=== PATIENT | male | born 2000 | race Caucasian/White ===

== ENCOUNTER 2018-01-28 23:08 | Observation (INO) | payer OTHER ==
[2018-01-28 23:55] LABS: AMORPHOUS SEDIMENT,URINE TRACE /HPF; APPEARANCE,URINE CLOUDY; BILIRUBIN,URINE NEGATIVE (NEGATIVE); COLOR,URINE YELLOW; GLUCOSE, URINE NEGATIVE (NEGATIVE); KETONES,URINE NEGATIVE (NEGATIVE); LEUKOCYTE ESTERASE,URINE NEGATIVE (NEGATIVE); NITRITE,URINE NEGATIVE (NEGATIVE); PROTEIN,URINE 30 mg/dL (NEGATIVE); URINE SPECIFIC GRAVITY 1.024
--- NOTE | 2018-01-29 00:38 | ER Document Report ---
ED General - General Chief Complaint: Abdominal Pain Stated Complaint: ABDOMINAL PAIN Time Seen by Provider: 01/29/18 00:37 Notes: Patient is a 17-year-old male who presents emergency department complaining of diffuse abdominal pain. Patient states that the symptoms started today while he was at work. States that it is originally left lower quadrant and all over his stomach and then moved into his right lower quadrant. He admits to mild nausea when the pain is at its worst and as a sharp stabbing. Otherwise describes it as a constant cramp. Patient states that he has been constipated over the past 2 days. He denies any fevers or chills. Female - Related Data Allergies/Adverse Reactions: No Known Allergies Allergy (Verified 01/29/18 01:42) Past Medical History - Social History Smoking Status: Never Smoker Chew tobacco use (# tins/day): No Frequency of alcohol use: Rare Drug Abuse: None Family History: None Patient has suicidal ideation: No Patient has homicidal ideation: No Pulmonary Medical History: Reports: Hx Asthma - childhood Renal/ Medical History: Denies: Hx Peritoneal Dialysis Past Surgical History: Reports: Hx Tonsillectomy - with adnoidectomy - Immunizations Immunizations up to date: Yes Hx Diphtheria, Pertussis, Tetanus Vaccination: Yes Review of Systems - Review of Systems Constitutional: No symptoms reported. denies: Chills, Fever Cardiovascular: No symptoms reported Respiratory: No symptoms reported Gastrointestinal: See HPI Male Genitourinary: No symptoms reported Musculoskeletal: No symptoms reported Neurological/Psychological: No symptoms reported -: Yes All other systems reviewed and negative Physical Exam - Vital signs Vitals: Temp Pulse Resp BP Pulse Ox 97.9 F 81 16 141/83 H 99 01/28/18 23:13 01/28/18 23:13 01/28/18 23:13 01/28/18 23:13 01/28/18 23:13 - Notes Notes: PHYSICAL EXAM GENERAL: Alert, interacts well. HEAD: Normocephalic, atraumatic. EYES: Pupils equal, round, and reactive to light. Extraocular movements intact. ENT: Oral mucosa moist, tongue midline. NECK: Full range of motion. Supple. Trachea midline. LUNGS: Clear to auscultation bilaterally, no wheezes, rales, or rhonchi. No respiratory distress. HEART: Regular rate and rhythm. No murmurs, gallops, or rubs. ABDOMEN: Soft, moderate right lower quadrant tenderness with palpation. Positive psoas sign. No guarding, rebound, or rigidity.. Bowel sounds present in all 4 quadrants. EXTREMITIES: Moves all 4 extremities spontaneously. No edema, radial and dorsalis pedis pulses 2/4 bilaterally. No cyanosis. NEUROLOGICAL: Alert and oriented x4. Normal speech. PSYCH: Normal affect, normal mood. SKIN: Warm, dry, normal turgor. No rashes or lesions noted. Course - Re-evaluation Re-evalutation: 01/29/18 02:31 Patient is a 17-year-old male who is hemodynamically stable no acute distress and afebrile. Initial exam shows significant right lower quadrant tenderness but patient states that he has been constipated over the past couple of days. Acute abdomen series shows evidence of cysts but repeat abdominal exams concerning for focal right lower quadrant tenderness therefore CT abdomen and pelvis with p.o. and IV contrast has been ordered to rule out acute appendicitis. Patient to be kept n.p.o. until results are reviewed. 01/29/18 05:00 Discussion with night urologist to see is early acute appendicitis without evidence of free air, abscess or perforation. Patient's been n.p.o. since midnight. Will initiate on Zosyn and IV fluids. Discussed with Dr. Healy to evaluate the patient in the ER. Limited - Vital Signs Vital signs: Temp Pulse Resp BP Pulse Ox 98.3 F 83 22 120/91 H 97 01/29/18 06:57 01/29/18 04:25 01/29/18 06:01 01/29/18 06:01 01/29/18 06:01 - Laboratory Result Diagrams: 01/29/18 00:15 01/29/18 00:15 Laboratory results interpreted by me: 01/28/18 01/29/18 01/29/18 23:36 00:15 00:15 WBC 15.0 H Absolute Neutrophils 10.9 H Absolute Monocytes 1.5 H ALT 47 H Urine Protein 30 H Urine Urobilinogen 2.0 H - Diagnostic Test Radiology reviewed: Image reviewed, Reports reviewed Discharge - Discharge Clinical Impression: Appendicitis Qualifiers: Appendicitis type: acute appendicitis Acute appendicitis type: unspecified acute appendicitis type Qualified Code(s): K35.80 - Unspecified acute appendicitis Condition: Good Disposition: ADMITTED INPATIENT Admitting Provider: Surgicalist Unit Admitted: Surgical Floor
[2018-01-29] MEDS ORDERED: KETOROLAC TROMETHAMINE INJ/PF 30 MG/1 ML SDV IV ONE (00:45)
[2018-01-29 01:00] LABS: ABSOLUTE BASOPHILS # (AUTO) 0.1 10^3/uL (0.0-0.2); ABSOLUTE EOSINOPHILS # (AUTO) 0.2 10^3/uL (0.0-0.6); ABSOLUTE LYMPHOCYTES (AUTO) 2.3 10^3/uL (0.5-4.7); ABSOLUTE MONOCYTES (AUTO) 1.5 10^3/uL (0.1-1.4); ABSOLUTE NEUT (AUTO) 10.9 10^3/uL (1.7-8.2); BASOPHILS % (AUTO) 0.5 % (0-2); EOSINOPHILS % (AUTO) 1.4 % (0-6); HEMOGLOBIN 16.3 g/dL (13.5-17.0); LYMPHOCYTES % (AUTO) 15.4 % (13-45); MEAN CORPUSCULAR HEMOGLOBIN 30.4 pg (27.0-33.4); MEAN CORPUSCULAR HGB CONC 34.6 g/dL (32.0-36.0); MEAN CORPUSCULAR VOLUME 88 fl (80-97); PLATELET COUNT 278 10^3/uL (150-450); RED BLOOD COUNT 5.35 10^6/uL (4.35-5.55); RED CELL DISTRIBUTION WIDTH 12.4 % (11.5-14.0); SEGMENTED NEUTROPHILS % (AUTO) 72.7 % (42-78); TOTAL CELLS COUNTED % (AUTO) 100 %
[2018-01-29 01:08] LABS: ALANINE AMINOTRANSFERASE 47 U/L (10-40); ALBUMIN 4.7 g/dL (3.7-5.6); ALKALINE PHOSPHATASE 75 U/L (65-260); ANION GAP 13 (5-19); ASPARTATE AMINO TRANSFERASE 24 U/L (10-45); BILIRUBIN,DIRECT 0.2 mg/dL (0.0-0.4); BILIRUBIN,TOTAL 0.6 mg/dL (0.2-1.3); BLOOD UREA NITROGEN 13 mg/dL (7-20); CALCIUM 10.2 mg/dL (8.4-10.2); CARBON DIOXIDE 27 mmol/L (22-30); CHLORIDE 100 mmol/L (98-107); GLUCOSE 104 mg/dL (75-110); LIPASE 37.3 U/L (23-300); POTASSIUM 4.1 mmol/L (3.6-5.0); SODIUM 140.3 mmol/L (137-145); TOTAL PROTEIN 7.2 g/dL (6.3-8.2)
--- NOTE | 2018-01-29 02:04 | RADIOLOGY REPORT (SQ) ---
EXAM DESCRIPTION: ACUTE ABDOMEN SERIES CLINICAL HISTORY: diffuse abdominal pain COMPARISON: None. FINDINGS: Single view of the chest with upright and spine views of the abdomen. Cardiomediastinal silhouette has normal size and contour. No consolidation, pneumothorax, or pleural effusion. No acute osseous abnormalities. No free intraperitoneal air. No dilated loops of large or small bowel identified. Moderate amount of stool. Likely fecalith in the right abdomen. No acute osseous abnormalities. No definite organomegaly. IMPRESSION: 1. No acute pulmonary process. 2. Nonobstructive bowel gas pattern.
[2018-01-29] MEDS ORDERED: PIPERACILLIN/TAZOBACTAM 3.375 GM VIAL IV ONE (04:59)
--- NOTE | 2018-01-29 04:59 | RADIOLOGY REPORT (SQ) ---
EXAM DESCRIPTION: CT ABDOMEN AND PELVIS WITH CONTRAST CLINICAL HISTORY: right lower quadrant pain COMPARISON: None Available. TECHNIQUE: CT of the abdomen and pelvis performed following IV administration of 96 mL of Isovue-370. DLP: 2238.24 mGycm FINDINGS: FINDINGS: Lung Bases: The visualized lung bases are clear. Bones: No destructive bone lesions identified. Abdomen: Liver: The liver has normal size and density. No intrahepatic mass or biliary dilatation. Gallbladder: No calcified gallstones. Spleen, Pancreas, and Adrenal Glands: The spleen, pancreas, and adrenal glands are unremarkable. Kidneys: The kidneys have normal size and contour without evidence of solid mass or hydronephrosis. Vasculature: The aorta and IVC have normal caliber and position. The portal vein is patent. The proximal visceral and renal arteries are patent. Stomach: The stomach and duodenum have normal course. Other: No free intraperitoneal air. No free fluid. Pelvis: Bladder: Urinary bladder is unremarkable. Bowel: No dilated loops of large or small bowel. Appendix: There is an appendicolith with mild dilatation of the appendix and periappendiceal fat stranding as well as lymphadenopathy. No periappendiceal abscess formation Pelvis: The prostate is not enlarged. IMPRESSION: 1. Findings compatible with early acute appendicitis. Urgent finding reported to KSENIA Reardon at 01/29/2018 3:57 AM CDT This exam was performed according to our departmental dose-optimization program, which includes automated exposure control, adjustment of the mA and/or kV according to patient size and/or use of iterative reconstruction technique.
[2018-01-29] MEDS ORDERED: RINGERS SOLUTION,LACTATED 1,000 ML IV PRN ×2 (05:02→09:20)
[2018-01-29] MEDS ORDERED: MORPHINE SULFATE 10 MG/ML INJ IV ONE (05:02)
[2018-01-29] MEDS ORDERED: PIPERACILLIN/TAZOBACTAM 4.5 GM VIAL IV ONE (06:38)
--- NOTE | 2018-01-29 06:46 | PDOC H&P ---
History of Present Illness Admission Date/PCP: 01/29/18 05:54 ALIRIO MCKEON History of Present Illness: DARBY YO is a 17 year old male Presents to the emergency department complaining of a 12 hour history of abdominal pain, right-sided, with anorexia, no nausea or vomiting. Patient denies history of trauma, previous episodes of abdominal pain, or association with family members with similar symptoms. Patient was evaluated in the emergency department where he was found to have right-sided abdominal pain. Acute abdominal series was unremarkable. CT scan of the abdomen and pelvis performed showed findings consistent with early acute appendicitis. Surgery was consulted, patient was advised admission and definitive management. Past Medical History Pulmonary Medical History: Reports: Asthma - childhood Past Surgical History Past Surgical History: Reports: Tonsillectomy - with adnoidectomy Social History Smoking Status: Never Smoker Hx Recreational Drug Use: No Hx Prescription Drug Abuse: No Family History Family History: None Parental Family History Reviewed: Yes Children Family History Reviewed: Yes Sibling(s) Family History Reviewed.: Yes Medication/Allergy Home Medications: Cyclobenzaprine HCl [Flexeril 5 mg Tablet] 5 mg PO TID #15 tablet 07/22/14 Hydrocodone/Acetaminophen [[place] 5-325 mg Tablet] 1 tab PO QID #15 tablet Naproxen 500 mg PO BID #20 tablet 07/22/14 Allergies/Adverse Reactions: No Known Allergies Allergy (Verified 01/29/18 01:42) Review of Systems Constitutional: ABSENT: chills, fever(s), headache(s), weight gain, weight loss Eyes: ABSENT: visual disturbances Ears: ABSENT: hearing changes Cardiovascular: ABSENT: chest pain, dyspnea on exertion, edema, orthropnea, palpitations Genitourinary: ABSENT: dysuria, hematuria Musculoskeletal: ABSENT: joint swelling Integumentary: PRESENT: other - Patient does have some scratches on his hands related to minor trauma. ABSENT: rash, wounds Psychiatric: ABSENT: anxiety, depression, homidical ideation, suicidal ideation Endocrine: ABSENT: cold intolerance, heat intolerance, polydipsia, polyuria Physical Exam Vital Signs: Temp Pulse Resp BP Pulse Ox 98.3 F 83 22 120/91 H 97 01/29/18 04:25 01/29/18 04:25 01/29/18 06:01 01/29/18 06:01 01/29/18 06:01 General appearance: PRESENT: no acute distress Head exam: PRESENT: normocephalic Eye exam: PRESENT: EOMI Ear exam: PRESENT: normal external ear exam Neck exam: PRESENT: full ROM Respiratory exam: PRESENT: clear to auscultation saida Cardiovascular exam: PRESENT: RRR Pulses: PRESENT: normal carotid pulses, normal radial pulses, normal femoral pulses GI/Abdominal exam: PRESENT: other - Diffuse abdominal tenderness but more localized to the right lower quadrant with mild guarding. No rigidity. Extremities exam: PRESENT: full ROM Musculoskeletal exam: PRESENT: ambulatory Psychiatric exam: PRESENT: anxious Results Impressions: Acute Abdomen Series 01/29/18 00:44 IMPRESSION: 1. No acute pulmonary process. 2. Nonobstructive bowel gas pattern. Abdomen CT 01/29/18 02:30 IMPRESSION: 1. Findings compatible with early acute appendicitis. Urgent finding reported to KSENIA Reardon at 01/29/2018 3:57 AM CDT This exam was performed according to our departmental dose-optimization program, which includes automated exposure control, adjustment of the mA and/or kV according to patient size and/or use of iterative reconstruction technique. Assessment & Plan - Diagnosis (1) Appendicitis Qualifiers: Appendicitis type: acute appendicitis Acute appendicitis type: unspecified acute appendicitis type Qualified Code(s): K35.80 - Unspecified acute appendicitis Is this a current diagnosis for this admission?: Yes Plan: Patient's clinical, and radiographic history consistent with acute appendicitis ; no evidence of rupture or phlegmon. Recommendations: 1. Admission to surgical service, keep n.p.o., on IV fluids, intravenous antibiotics. Plan for interval laparoscopic, possible open appendectomy, later today, [facility], main operating room, general anesthesia. I explained the risks benefits and alternatives of planned procedure including bleeding, infection, wound healing issues, need for additional surgery drain placement and complications related to anesthesia. 2. I explained to the patient, patient's girlfriend and patient's mother that Dr. House, surgicalist of the day, performing the procedure. - Time Time Spent: 30 to 50 Minutes Critical Time spent with patient: 15-24 minutes Medications reviewed and adjusted accordingly: Yes Anticipated discharge: Home - Inpatient Certification Based on my medical assessment, after consideration of the patient's comorbidities, presenting symptoms, or acuity I expect that the services needed warrant INPATIENT care.: Yes I certify that my determination is in accordance with my understanding of Medicare's requirements for reasonable and necessary INPATIENT services [42 CFR 412.3e].: Yes Medical Necessity: Need For IV Fluids, Need for IV Antibiotics, Need for Surgery
[2018-01-29] MEDS ORDERED: PROPOFOL INJ 200 MG/20 ML VIAL IV ONE (07:25)
[2018-01-29] MEDS ORDERED: MIDAZOLAM 2 MG/2 ML INJ ONE (07:25)
[2018-01-29] MEDS ORDERED: ACETAMINOPHEN 100 ML IV ONE (07:25)
[2018-01-29] MEDS ORDERED: FENTANYL CITRATE INJ/PF 250 MCG/5 ML AMPULE ONE (07:25)
[2018-01-29] MEDS ORDERED: BUPIVACAINE HCL 0.5%-EPI 1:200000 INJ/PF 30 ML VIAL ONE (07:38)
[2018-01-29] MEDS ORDERED: PROMETHAZINE HCL INJ 25 MG/1 ML VIAL ONE (07:43)
[2018-01-29] MEDS ORDERED: MEPERIDINE HCL/PF INJ 25 MG/1 ML DISP.SYRIN IV PRN (08:31)
[2018-01-29] MEDS ORDERED: ONDANSETRON HCL INJ/PF 4 MG/2 ML SDV IV PRN (08:31)
[2018-01-29] MEDS ORDERED: FENTANYL CITRATE INJ/PF 100 MCG/2 ML AMPUL IV PRN ×3 (08:31)
[2018-01-29] MEDS ORDERED: DIPHENHYDRAMINE HCL 50 MG/ML VIAL IV PRN (08:31)
--- NOTE | 2018-01-29 09:18 | Operative Report ---
Nonrecallable Operative Report DATE OF SURGERY: 01/29/18 PREOPERATIVE DIAGNOSIS: acute appendicitis POSTOPERATIVE DIAGNOSIS: same OPERATION: laparoscoic appendectomy SURGEON: DORINDA CEE 1ST RN CARDIOLOGY: none TISSUE REMOVED OR ALTERED: appendix COMPLICATIONS: none INTRAOPERATIVE FINDINGS: acute, nonperforated appendicitis PROCEDURE: laparoscopic appendectomy
[2018-01-29] MEDS ORDERED: KETOROLAC TROMETHAMINE INJ/PF 30 MG/1 ML SDV IV PRN (09:21)
[2018-01-29] MEDS ORDERED: ACETAMINOPHEN 325 MG TABLET PO PRN (09:22)
--- NOTE | 2018-01-29 10:19 | OPERATIVE REPORT E ---
Operative Report NAME: DARBY YO : 2000 AGE: 17Y DATE OF SURGERY: 01/29/2018 ROOM: 208 SURGEON: DORINDA CEE M.D. DYER AND WASHER: None. ESTIMATED BLOOD LOSS: Negligible. COMPLICATIONS: None. ANESTHESIA: General plus 18 mL of 0.5% Marcaine with epinephrine. DRAINS: None. FLUIDS: 1500. URINE OUTPUT: Not monitored. INDICATIONS AND FINDINGS: This is a healthy 17-year-old male with a 2-day history of right upper quadrant pain, intense nausea. Found to have acute appendicitis on CAT scan. The patient was admitted to undergo laparoscopic appendectomy. This was planned for this morning. Procedure, benefits and complications were explained to the patient. He understood all the above and decided to procedure. PROCEDURE: The procedure was done in the operating room. The patient was placed in the supine position. General anesthesia induced by endotracheal intubation. Abdomen prepped and draped in the usual sterile fashion. An incision was made just above the umbilicus. The skin was tethered with towel clips and a 5 mm port was inserted with Optiview adaptor and scope into the peritoneal cavity. CO2 pneumoperitoneum was established and under direct visualization, a 5 mm port was inserted in the left upper quadrant of the abdomen. The 5 mm port to the umbilicus was removed and replaced by a 12 mm port and a 5 mm port was inserted in the left lower quadrant of the abdomen. The patient was placed on Trendelenburg position with the right side elevated. The appendix was found anterior in the right lower quadrant, elevated and stretched. The mesoappendix was divided with the LigaSure. Appendix was stapled at the base and extracted from the peritoneal cavity with an Endo-bag. CO2 pneumoperitoneum was then established. The peritoneal cavity was irrigated with normal saline about 20 mL which was fully aspirated until clear. The umbilical fascial defect was closed with a kyxgiy-[id number]-vtboe 0 Vicryl suture using a fascial closure device. All instruments were removed. CO2 pneumoperitoneum was released. The ports were removed. The fascial defect at the umbilicus was closed with a previously placed 0 Vicryl hvaqnp-hy-uqiyt suture. The skin incision was closed with 4-0 Monocryl running subcuticular suture with Dermabond applied. The patient tolerated the procedure well, extubated and transferred to the recovery room in satisfactory condition. DICTATING PHYSICIAN: DORINDA CEE M.D. [id number] PHY#: [id number] ID: [id number] JOB#: [id number] ACCT: [id number] cc:DORINDA CEE M.D. > [facility]
[2018-01-29] MEDS ORDERED: PIPERACILLIN SODIUM/TAZOBACTAM 3.375 GM in NORMAL SALINE 100 ML IV SCH ×4 (12:00)
[2018-01-29 14:34] VITALS: BP 129/69
[2018-01-29] MEDS ORDERED: DEXAMETHASONE SOD PHOSPHATE INJ 4 MG/1 ML VIAL ONE (14:34)
[2018-01-29] MEDS ORDERED: ROCURONIUM BROMIDE INJ 50 MG/5 ML VIAL IV ONE (14:34)
[2018-01-29] MEDS ORDERED: GLYCOPYRROLATE INJ 0.4 MG/2 ML VIAL ONE (14:34)
[2018-01-29] MEDS ORDERED: SUCCINYLCHOLINE CHLORIDE INJ 200 MG/10 ML VIAL ONE (14:34)
[2018-01-29] MEDS ORDERED: NEOSTIGMINE METHYLSULFATE 10 MG/10 ML VIAL ONE (14:34)
[2018-01-29] MEDS ORDERED: METOCLOPRAMIDE HCL INJ/PF 10 MG/2 ML SDV ONE (14:34)
--- NOTE | 2018-01-29 15:58 | PDOC PROGRESS REPORT ---
Subjective Progress Note for:: 01/29/18 Subjective:: sleepy but arousable and comfortable, denies any systemic symptoms Reason For Visit: ACUTE APPENDICITIS Physical Exam Vital Signs: Temp Pulse Resp BP Pulse Ox 98.2 F 92 H 16 129/69 H 96 01/29/18 14:32 01/29/18 14:32 01/29/18 14:32 01/29/18 14:32 01/29/18 14:32 Intake & Output 01/28/18 01/29/18 01/30/18 06:59 06:59 06:59 Intake Total 1570 Output Total 120 Balance 1450 General appearance: PRESENT: no acute distress Respiratory exam: PRESENT: clear to auscultation saida Cardiovascular exam: PRESENT: RRR GI/Abdominal exam: PRESENT: soft, other - wounds C/D/I Results Impressions: Acute Abdomen Series 01/29/18 00:44 IMPRESSION: 1. No acute pulmonary process. 2. Nonobstructive bowel gas pattern. Abdomen CT 01/29/18 02:30 IMPRESSION: 1. Findings compatible with early acute appendicitis. Urgent finding reported to KSENIA Reardon at 01/29/2018 3:57 AM CDT This exam was performed according to our departmental dose-optimization program, which includes automated exposure control, adjustment of the mA and/or kV according to patient size and/or use of iterative reconstruction technique. Assessment & Plan - Diagnosis (1) Appendicitis Qualifiers: Appendicitis type: acute appendicitis Acute appendicitis type: unspecified acute appendicitis type Qualified Code(s): K35.80 - Unspecified acute appendicitis Is this a current diagnosis for this admission?: Yes - Plan Summary Plan Summary: A/ S/P laparoscopic appendectomy VSS No nausea, vomiting PE Unremarkable P/ Home tonight regular diet meal before discharge F/u in the office next week Tylenol prn for pain Shower only
--- NOTE | 2018-01-29 16:09 | DISCHARGE SUMMARY E ---
Discharge Summary NAME: DARBY YO : 2000 AGE: 17Y ADMITTED: 01/29/2018 DISCHARGED: 01/29/2018 FINAL DIAGNOSIS: Acute appendicitis. PROCEDURE: Laparoscopic appendectomy, January 29. COMPLICATIONS: None. HOSPITAL COURSE: This is a healthy, 17-year-old male who presented to the emergency room with right lower quadrant pain, found to have an acute appendicitis on CT scan of the abdomen and pelvis. The patient underwent an uneventful laparoscopic appendectomy in the process engineering intern on January 29, 2018. His postoperative course was unremarkable with vital signs remaining stable. He was able to tolerate p.o. well. His physical exam was unremarkable. At the time of discharge, the patient had no complaints. He was sleepy, arousable, but comfortable. He was tolerating p.o. well and was discharged to home on the same day, January 29. He was given a followup appointment with the [facility] Dr. Healy in one week. He was given Tylenol by mouth as needed for pain, instructed to apply ice packs to the wounds p.r.n. for pain, no wound care needed, and instructed to resume his activities as tolerated and regular diet. DICTATING PHYSICIAN: DORINDA CEE M.D. [id number] Y#: [id number] ID: [id number] JOB#: [id number] ACCT: [id number] cc:Florin WAGNER M.D. Billy Billy [facility], [facility]
== END 2018-01-29 17:50 | disposition home or self-care (01) ==
LOC: ER 23:08 → EH 01-29 05:54 → INTOOBSV 01-29 05:54 → 2N 01-29 07:15
PROVIDERS: ATTEND Surgery
PROC: 0DTJ4ZZ Resection of Appendix, Percutaneous Endoscopic Approach (ICD-10-PCS; principal; 2018-01-29 07:30)
DX: K35.3 Acute appendicitis with localized peritonitis (principal)
CPT/HCPCS: 99285; 96375; 96365; 36415; 83690; 85025; 80053; 81001; 88304 ×2; 74022; 74160; 44970; G0378; J2250; J3490 ×2; J1100; J3010; J1885; J2765; J2270; J2550; J0330; J7120; J2704; J2543; J0131; 840

== ENCOUNTER 2019-02-22 09:50 | Emergency (ER) | payer OTHER ==
[2019-02-22] MEDS ORDERED: NORMAL SALINE 1000 ML 1,000 ML IV ONE (10:02)
--- NOTE | 2019-02-22 10:02 | ER Document Report ---
ED Medical Screen (RME) - General Chief Complaint: Fever Stated Complaint: DIARRHEA/VOMITTING Time Seen by Provider: 02/22/19 09:57 Primary Care Provider: ALIRIO MCKEON MD [Primary Care Provider] - Follow up as needed Mode of Arrival: Ambulatory Information source: Patient Notes: Patient is an otherwise healthy 18-year-old male who presents to the emergency department with chief complaint of fever, nausea, vomiting and diarrhea that has been going on for the last 2 days. Patient reports abdominal pain comes right before he has to have a bowel movement otherwise he does not have any pain. Patient does report fevers at home as high as 102. Patient states last time he vomited was last night, states he held down some fluids today. Patient is tachycardic on arrival with a heart rate of 111. Exam: Abdomen soft and nontender with no guarding or rebound tenderness. I have greeted and performed a rapid initial assessment of this patient. A comprehensive ED assessment and evaluation of the patient, analysis of test results and completion of the medical decision making process will be conducted by additional ED providers. Dictation of this chart was performed using voice recognition software; therefore, there may be some unintended grammatical errors. TRAVEL OUTSIDE OF THE [place] IN LAST 30 DAYS: No - Related Data Allergies/Adverse Reactions: No Known Allergies Allergy (Verified 02/22/19 09:50) Past Medical History Pulmonary Medical History: Reports: Hx Asthma - childhood Renal/ Medical History: Denies: Hx Peritoneal Dialysis Past Surgical History: Reports: Hx Appendectomy, Hx Tonsillectomy - with adnoidectomy - Immunizations Immunizations up to date: Yes Hx Diphtheria, Pertussis, Tetanus Vaccination: Yes History of Influenza Vaccine for 08/2017 - 01/2018 Season: Refused Physical Exam - Vital signs Vitals: Temp Pulse Resp BP Pulse Ox 98.4 F 108 H 18 148/93 H 99 02/22/19 09:54 02/22/19 09:54 02/22/19 09:54 02/22/19 09:54 02/22/19 09:54 Course - Vital Signs Vital signs: Temp Pulse Resp BP Pulse Ox 98.4 F 108 H 18 148/93 H 99 02/22/19 09:54 02/22/19 09:54 02/22/19 09:54 02/22/19 09:54 02/22/19 09:54 Doctor's Discharge - Discharge Referrals: ALIRIO MCKEON MD [Primary Care Provider] - Follow up as needed
[2019-02-22] MEDS ORDERED: ONDANSETRON HCL INJ/PF 4 MG/2 ML SDV IV ONE (10:37)
[2019-02-22 10:42] LABS: ABSOLUTE LYMPHOCYTES (AUTO) 1.2 10^3/uL (0.5-4.7); ABSOLUTE MONOCYTES (AUTO) 1.3 10^3/uL (0.1-1.4); ABSOLUTE NEUT (AUTO) 5.6 10^3/uL (1.7-8.2); BASOPHILS % (AUTO) 0.3 % (0-2); HEMATOCRIT 45.8 % (37.9-51.0); HEMOGLOBIN 16.2 g/dL (13.5-17.0); LYMPHOCYTES % (AUTO) 14.7 % (13-45); MEAN CORPUSCULAR HEMOGLOBIN 30.7 pg (27.0-33.4); MEAN CORPUSCULAR HGB CONC 35.4 g/dL (32.0-36.0); MEAN CORPUSCULAR VOLUME 87 fl (80-97); MONOCYTES % (AUTO) 16.2 % (3-13); PLATELET COUNT 209 10^3/uL (150-450); RED BLOOD COUNT 5.28 10^6/uL (4.35-5.55); RED CELL DISTRIBUTION WIDTH 12.7 % (11.5-14.0); SEGMENTED NEUTROPHILS % (AUTO) 68.8 % (42-78); TOTAL CELLS COUNTED % (AUTO) 100 %; WHITE BLOOD COUNT 8.1 10^3/uL (4.0-10.5)
--- NOTE | 2019-02-22 10:48 | ER Document Report ---
ED GI/ - General Chief Complaint: Fever Stated Complaint: DIARRHEA/VOMITTING Time Seen by Provider: 02/22/19 09:57 Primary Care Provider: ALIRIO MCKEON MD [Primary Care Provider] - Follow up as needed Mode of Arrival: Ambulatory TRAVEL OUTSIDE OF THE [place] IN LAST 30 DAYS: No - HPI Patient complains to provider of: Diarrhea, Vomiting Onset: Other - 3 days Notes: 02/22/19 10:45 Patient here with complaints of nausea, vomiting, diarrhea with some intermittent abdominal pain when he needs to have a bowel movement for the last 3 days. No blood in his vomit or his stool. No abdominal pain now. He has had fever associated with this. No dysuria or hematuria. No chest pain or shortness of breath. No rash. No numbness, tingling, weakness. Patient has had prior appendectomy, no other abdominal surgeries. He denies any chronic abdominal problems. Patient's pain is intermittent, mild, occurs when he needs to have a bowel movement. It is relieved after having a bowel movement. States the last time he vomited was last evening. Is typically if he drinks a lot of fluids. He denies any recent travel outside the [place]. No specific sick contacts. No specific bad food. No other complaints at this time. - Related Data Allergies/Adverse Reactions: No Known Allergies Allergy (Verified 02/22/19 09:50) Past Medical History - General Information source: Patient - Social History Smoking Status: Never Smoker Family History: None Patient has suicidal ideation: No Patient has homicidal ideation: No Pulmonary Medical History: Reports: Hx Asthma - childhood Renal/ Medical History: Denies: Hx Peritoneal Dialysis Past Surgical History: Reports: Hx Appendectomy, Hx Tonsillectomy - with adnoidectomy - Immunizations Immunizations up to date: Yes Hx Diphtheria, Pertussis, Tetanus Vaccination: Yes Review of Systems - Review of Systems -: Yes All other systems reviewed and negative Physical Exam - Vital signs Vitals: Temp Pulse Resp BP Pulse Ox 98.4 F 108 H 18 148/93 H 99 02/22/19 09:54 02/22/19 09:54 02/22/19 09:54 02/22/19 09:54 02/22/19 09:54 - Notes Notes: GENERAL: alert, cooperative, nontoxic, no distress. HEAD: normocephalic, atraumatic EYES: conjunctiva pink without discharge, no external redness or swelling. EARS: no external swelling, no external redness NOSE: atraumatic, no external swelling MOUTH/THROAT: mucous membranes moist and pink, posterior pharynx without erythema, swelling, exudate. No trismus or drooling. NECK: soft, supple, full range of motion, no meningismus. CHEST: no distress, lungs clear and equal throughout. No wheezing, rales, rhonchi. CARDIAC: regular rhythm, mild tachycardia, no murmur, normal capillary refill, normal pulses. No peripheral edema noted. ABDOMEN: Soft, nontender. No rebound tenderness or guarding. No mass. BACK: full range of motion, no CVA tenderness. EXTREMITIES: full range of motion of all extremities. No redness, no swelling. NEURO: alert and oriented x 3, no focal deficits, full range of motion of all extremities. PYSCH: appropriate mood, affect. Patient is cooperative. SKIN: pink, warm, dry, no rash. Course - Re-evaluation Re-evalutation: 02/22/19 12:28 Patient is resting comfortably at this time. He is now complaining of a mild headache. Abdominal exam continues to be benign. Labs are unremarkable. Urinalysis shows signs of dehydration with no signs of infection. Patient most likely with viral gastroenteritis. He has a benign abdominal exam with no focal tenderness. He has had prior appendectomy. This point the patient was given IV fluids and Zofran. He had no vomiting here in emergency department. At this point believe he can be discharged home with a prescription for Zofran and Bentyl. Instructions to drink small amounts of fluids frequently as possible. Follow-up if not better in 1 week, sooner for worsening pain, fever, persistent vomiting, blood in vomit or stools, or for any further concerns. The patient's emergency department workup and current diagnosis were explained to the patient and or family. Follow-up instructions were provided. Medications if prescribed were discussed. Instructions for when to return to the emergency department including specific worrisome symptoms were discussed with the patient and/or family. - Vital Signs Vital signs: Temp Pulse Resp BP Pulse Ox 99.6 F 108 H 18 148/93 H 99 02/22/19 11:53 02/22/19 09:54 02/22/19 09:54 02/22/19 09:54 02/22/19 09:54 - Laboratory Result Diagrams: 02/22/19 10:14 02/22/19 10:14 Laboratory results interpreted by me: 02/22/19 02/22/19 02/22/19 10:14 10:14 10:14 Monocytes % 16.2 H Sodium 135.0 L Urine Protein 30 H Urine Ketones 20 H Urine Blood SMALL H Discharge - Discharge Clinical Impression: Nausea vomiting and diarrhea Condition: Stable Disposition: HOME, SELF-CARE Instructions: Vomiting ([facility]), Intravenous (IV) Fluids ([facility]), Diarrhea, Nonsp ecific ([facility]) Additional Instructions: Take medications as prescribed. Drink plenty of fluids. Drink small amounts of fluids frequently. Follow-up with your doctor if not better within a week, sooner for worsening pain, persistent vomiting, blood in your vomit or stool, or for any further concerns. Prescriptions: Dicyclomine HCl [Bentyl 20 mg Tablet] 20 mg PO QID #20 tablet Ondansetron HCl [Zofran 4 mg Tablet] 1 - 2 tab PO Q4H PRN #10 tablet PRN Reason: Forms: Elevated Blood Pressure Referrals: ALIRIO MCKEON MD [Primary Care Provider] - Follow up as needed
[2019-02-22 10:51] LABS: APPEARANCE,URINE SLIGHTLY-CLOUDY; BILIRUBIN,URINE NEGATIVE (NEGATIVE); GLUCOSE, URINE NEGATIVE (NEGATIVE); KETONES,URINE 20 mg/dL (NEGATIVE); LEUKOCYTE ESTERASE,URINE NEGATIVE (NEGATIVE); NITRITE,URINE NEGATIVE (NEGATIVE); PROTEIN,URINE 30 mg/dL (NEGATIVE); URINE SPECIFIC GRAVITY 1.023; UROBILINOGEN,URINE NEGATIVE mg/dL (<2.0)
[2019-02-22 10:52] LABS: COLOR,URINE YELLOW
[2019-02-22 11:00] LABS: ALANINE AMINOTRANSFERASE 34 U/L (21-72); ALBUMIN 4.2 g/dL (3.5-5.0); ALKALINE PHOSPHATASE 66 U/L (38-126); ANION GAP 11 (5-19); ASPARTATE AMINO TRANSFERASE 19 U/L (17-59); BILIRUBIN,DIRECT 0.3 mg/dL (0.0-0.4); BILIRUBIN,TOTAL 0.7 mg/dL (0.2-1.3); BLOOD UREA NITROGEN 9 mg/dL (7-20); CALCIUM 9.7 mg/dL (8.4-10.2); CARBON DIOXIDE 26 mmol/L (22-30); CHLORIDE 98 mmol/L (98-107); GLUCOSE 102 mg/dL (75-110); LIPASE 39.9 U/L (23-300); POTASSIUM 3.9 mmol/L (3.6-5.0); TOTAL PROTEIN 7.1 g/dL (6.3-8.2)
[2019-02-22] MEDS ORDERED: KETOROLAC TROMETHAMINE INJ/PF 30 MG/1 ML SDV IV ONE (12:21)
[2019-02-22 12:44] VITALS: BP 133/78
== END 2019-02-22 12:54 | disposition home or self-care (01) ==
LOC: ER 09:50
DX: R11.2 Nausea with vomiting, unspecified (principal); R19.7 Diarrhea, unspecified; R10.9 Unspecified abdominal pain; R00.0 Tachycardia, unspecified; R51 Headache; Z90.49 Acquired absence of other specified parts of digestive tract
CPT/HCPCS: 99283; 96361; 96374; 96375; 36415; 83690; 85025; 80053; 81001; J1885; J2405; J7030

== ENCOUNTER 2019-02-24 09:27 | Emergency (ER) | payer OTHER ==
[2019-02-24 09:36] VITALS: BP 144/80
--- NOTE | 2019-02-24 10:12 | ER Document Report ---
ED Medical Screen (RME) - General Chief Complaint: Bloody Stools Stated Complaint: BLOOD IN STOOL Time Seen by Provider: 02/24/19 09:49 Primary Care Provider: ALIRIO MCKEON MD [Primary Care Provider] - Follow up as needed Mode of Arrival: Ambulatory Information source: Patient TRAVEL OUTSIDE OF THE [place] IN LAST 30 DAYS: No - HPI Patient complains to provider of: Blood in stool Notes: 02/24/19 10:11 Patient here with complaints of blood in his stool. He was seen here 2 days ago with nausea vomiting. Labs are unremarkable. No abdominal tenderness at that time. He was discharged home with Bentyl and Zofran. He states that he continues to have the diarrhea, but he noticed some bright red blood in his stool today. He denies any pain. No fever. Vomiting is under control. Physical exam: No obvious abdominal tenderness on limited triage exam. Nontoxic-appearing. Well-hydrated. No distress. No CVA tenderness. Plan I have ordered repeat labs to compare labs from 2 days ago. Patient will likely need a rectal exam once he is in a room in the back to determine if they can figure out where the bright red blood is coming from and to determine if the patient will require CT imaging. An initial examination was made on the patient as part of the triage process, and it was determined a more comprehensive evaluation was necessary. Initial labs were ordered and patient was transferred to another provider in the ED who assumed care and finished evaluation and plan. - Related Data Allergies/Adverse Reactions: No Known Allergies Allergy (Verified 02/24/19 09:51) Past Medical History - Social History Frequency of alcohol use: None Drug Abuse: None Pulmonary Medical History: Reports: Hx Asthma - childhood Renal/ Medical History: Denies: Hx Peritoneal Dialysis Past Surgical History: Reports: Hx Appendectomy, Hx Tonsillectomy - with adnoidectomy - Immunizations Immunizations up to date: Yes Hx Diphtheria, Pertussis, Tetanus Vaccination: Yes History of Influenza Vaccine for 08/2017 - 01/2018 Season: Refused Physical Exam - Vital signs Vitals: Temp Pulse Resp BP Pulse Ox 97.8 F 82 16 144/80 H 98 02/24/19 09:34 02/24/19 09:34 02/24/19 09:34 02/24/19 09:34 02/24/19 09:34 Course - Vital Signs Vital signs: Temp Pulse Resp BP Pulse Ox 97.8 F 82 16 144/80 H 98 02/24/19 09:34 02/24/19 09:34 02/24/19 09:34 02/24/19 09:34 02/24/19 09:34 Doctor's Discharge - Discharge Referrals: ALIRIO MCKEON MD [Primary Care Provider] - Follow up as needed
[2019-02-24 10:36] LABS: ABSOLUTE EOSINOPHILS # (AUTO) 0.1 10^3/uL (0.0-0.6); ABSOLUTE LYMPHOCYTES (AUTO) 1.4 10^3/uL (0.5-4.7); ABSOLUTE MONOCYTES (AUTO) 1.5 10^3/uL (0.1-1.4); ABSOLUTE NEUT (AUTO) 6.1 10^3/uL (1.7-8.2); BASOPHILS % (AUTO) 0.5 % (0-2); EOSINOPHILS % (AUTO) 1.5 % (0-6); HEMATOCRIT 43.2 % (37.9-51.0); HEMOGLOBIN 15.5 g/dL (13.5-17.0); LYMPHOCYTES % (AUTO) 15.7 % (13-45); MEAN CORPUSCULAR HGB CONC 35.8 g/dL (32.0-36.0); MEAN CORPUSCULAR VOLUME 86 fl (80-97); MONOCYTES % (AUTO) 16.2 % (3-13); PLATELET COUNT 254 10^3/uL (150-450); RED BLOOD COUNT 4.99 10^6/uL (4.35-5.55); RED CELL DISTRIBUTION WIDTH 12.9 % (11.5-14.0); SEGMENTED NEUTROPHILS % (AUTO) 66.1 % (42-78); TOTAL CELLS COUNTED % (AUTO) 100 %; WHITE BLOOD COUNT 9.2 10^3/uL (4.0-10.5)
[2019-02-24 10:57] LABS: ALANINE AMINOTRANSFERASE 39 U/L (21-72); ALBUMIN 3.8 g/dL (3.5-5.0); ALKALINE PHOSPHATASE 58 U/L (38-126); ANION GAP 10 (5-19); ASPARTATE AMINO TRANSFERASE 24 U/L (17-59); BILIRUBIN,DIRECT 0.3 mg/dL (0.0-0.4); BILIRUBIN,TOTAL 0.6 mg/dL (0.2-1.3); BLOOD UREA NITROGEN 8 mg/dL (7-20); CALCIUM 9.8 mg/dL (8.4-10.2); CARBON DIOXIDE 25 mmol/L (22-30); CHLORIDE 103 mmol/L (98-107); GLUCOSE 96 mg/dL (75-110); POTASSIUM 3.8 mmol/L (3.6-5.0); SODIUM 138.1 mmol/L (137-145); TOTAL PROTEIN 6.7 g/dL (6.3-8.2)
--- NOTE | 2019-02-24 11:01 | ER Document Report ---
ED General - General Mode of Arrival: Ambulatory TRAVEL OUTSIDE OF THE [place] IN LAST 30 DAYS: No <EWA HAAS - Last Filed: 02/24/19 13:32> <SIMEON GARCIA - Last Filed: 02/24/19 14:19> - General Chief Complaint: Bloody Stools Stated Complaint: BLOOD IN STOOL Time Seen by Provider: 02/24/19 09:49 Primary Care Provider: ALIRIO MCKEON MD [Primary Care Provider] - Follow up as needed MARKOS HOGUE MD [ACTIVE STAFF] - Follow up as needed NOLAN GUALLPA MD [ACTIVE STAFF] - Follow up as needed - HPI Notes: Patient is a 18-year-old male with no significant past medical history who presents the emergency department complaining of having diarrhea over the past 5 days it is mostly watery in consistency. Patient is presenting today because he noticed some red blood when he wiped. Patient states that he currently does not have any abdominal pain. He is eating and drinking without difficulty. He is urinating normally. Denies drug allergies. He does have a surgical history of appendectomy. No history of colon cancer in his family. Denies any headache, fever, neck pain, URI, sore throat, chest pain, palpitations, syncope, cough, shortness of breath, wheeze, dyspnea, abdominal pain, nausea/vomiting, urinary retention, dysuria, hematuria, or rash. Pt last drank alcohol 3 weeks ago. (EWA HAAS) - Related Data Allergies/Adverse Reactions: No Known Allergies Allergy (Verified 02/24/19 09:51) Past Medical History - General Information source: Patient - Social History Smoking Status: Never Smoker Frequency of alcohol use: None Drug Abuse: None Family History: None Patient has suicidal ideation: No Patient has homicidal ideation: No Pulmonary Medical History: Reports: Hx Asthma - childhood Renal/ Medical History: Denies: Hx Peritoneal Dialysis Past Surgical History: Reports: Hx Appendectomy, Hx Tonsillectomy - with adno idectomy - Immunizations Immunizations up to date: Yes Hx Diphtheria, Pertussis, Tetanus Vaccination: Yes <EWA HAAS - Last Filed: 02/24/19 13:32> Review of Systems - Review of Systems -: Yes All other systems reviewed and negative <EWA HAAS - Last Filed: 02/24/19 13:32> Physical Exam <SAMINA,SEAN - Last Filed: 02/24/19 13:32> - Vital signs Vitals: Temp Pulse Resp BP Pulse Ox 97.8 F 82 16 144/80 H 98 02/24/19 09:34 02/24/19 09:34 02/24/19 09:34 02/24/19 09:34 02/24/19 09:34 - Notes Notes: PHYSICAL EXAMINATION: GENERAL: Well-appearing, well-nourished and in no acute distress. LUNGS: Breath sounds clear to auscultation bilaterally and equal. No wheezes ra les or rhonchi. HEART: Regular rate and rhythm without murmurs, rubs, gallops. ABDOMEN: Soft, nontender, nondistended abdomen. No guarding, no rebound. Normal bowel sounds present. No CVA tenderness bilaterally. Rectal: no hemorrhoids noted. Non-tender. No obvious red blood or melena noted. Stool is light brown. Musculoskeletal: FROM to passive/active. Strength 5+/5. Extremities: No cyanosis, clubbing, or edema b/l. Peripheral pulses 2+. Capillary refill less than 3 seconds. NEUROLOGICAL: Normal speech, normal gait. PSYCH: Normal mood, normal affect. SKIN: Warm, Dry, normal turgor, no rashes or lesions noted. (EWA HAAS) Course - Laboratory Result Diagrams: 02/24/19 10:10 02/24/19 10:10 <EWA HAAS - Last Filed: 02/24/19 13:32> - Laboratory Result Diagrams: 02/24/19 10:10 02/24/19 10:10 <SIMEON GARCIA - Last Filed: 02/24/19 14:19> - Re-evaluation Re-evalutation: 02/24/19 13:33 Patient is an afebrile, well-hydrated, 18-year-old male who presents the emergency department with pancreatitis and diarrhea. Vitals are acceptable without significant tachycardia, tachypnea, or hypoxia. PE is otherwise unremarkable. Patient's abdomen is soft and nontender. CBC, CMP unremarkable. Lipase elevated significantly from recent baseline. He is otherwise nontoxic- appearing and is tolerating p.o. without difficulty. Patient cannot provide us with a stool sample today. See CT scan report. Low suspicion/risk for acute appendicitis, bowel obstruction, acute cholecystitis, perforated diverticulitis, incarcerated hernia, perforated ulcer, peritonitis, sepsis, testicular torsion, or other systemic emergent condition at this time. Patient is aware that his condition can change from initial presentation and he needs to monitor symptoms closely and seek medical attention if any acute changes. I did review with Dr. Garcia who agrees with plan. I thoroughly reviewed admission vs discharge home with the patient, and pt does not want to stay in the hospital as he is able to eat/drink w/o difficulty. He does have an appointment on Sun with GI. Conservative measures otherwise for symptoms. Recheck with PCM in 2-3 days. Return to the ED with any worsening/concerning symptoms otherwise as reviewed in discharge. Patient is in agreement. (EWA HAAS) 02/24/19 14:18 Patient seen and evaluated by myself. I agree with plan of care. Patient is mostly complaining of diarrhea with some blood in it. His hemoglobin is stable. patient was offered admission to the hospital for his pancreatitis which he declined. He does not have any abdominal tenderness and is tolerating oral intake. I extensively counseled him myself on clear liquid diet and advancing slowly as tolerated. Patient has an appointment on Sunday with GI which was established. He was counseled on the indications to return to the emergency room. Patient is hemodynamically stable and will be discharged as described above. (SIMEON GARCIA) - Vital Signs Vital signs: Temp Pulse Resp BP Pulse Ox 97.8 F 82 16 144/80 H 98 02/24/19 09:34 02/24/19 09:34 02/24/19 09:34 02/24/19 09:34 02/24/19 09:34 - Laboratory Laboratory results interpreted by me: 02/24/19 02/24/19 10:10 10:10 Monocytes % 16.2 H Absolute Monocytes 1.5 H Lipase 2078.8 H Discharge <WEA HAAS - Last Filed: 02/24/19 13:32> <SIMEON GARCIA - Last Filed: 02/24/19 14:19> - Discharge Clinical Impression: Pancreatitis, Diarrhea Condition: Stable Disposition: HOME, SELF-CARE Instructions: Diarrhea, Nonspecific ([facility]), Pancreatitis ([facility]) Additional Instructions: Maintain adequate fluid and food intake [place] diet ([employer] Bananas, rice, apples, toast, etc after 24-36hrs of clear liquid diet tylenol if needed Avoid alcohol intake as this can precipitate pancreatitis* Monitor for any worsening symptoms Make sure you are staying hydrated enough to urinate and have normal BM's Recheck with your PCM in 2-3 days Consider consult with Gastroenterology for ongoing/worsening symptoms Return to the ED with any worsening symptoms and/or development of fever, headache, chest pain, palpitations, syncope, shortness of breath, trouble breathing, abdominal pain, n/v/d, blood in stool/urine, weakness, or other worsening symptoms that are concerning to you. Forms: Elevated Blood Pressure Referrals: ALIRIO MCKEON MD [Primary Care Provider] - Follow up as needed MARKOS HOGUE MD [ACTIVE STAFF] - Follow up as needed NOLAN GUALLPA MD [ACTIVE STAFF] - Follow up as needed
[2019-02-24 11:09] LABS: LIPASE 2078.8 U/L (23-300)
--- NOTE | 2019-02-24 12:52 | RADIOLOGY REPORT (SQ) ---
EXAM DESCRIPTION: CT ABD/PELVIS WITH IV ONLY COMPLETED DATE/TIME: 02/24/2019 12:23 pm REASON FOR STUDY: n/v/d, elevated lipase COMPARISON: None. TECHNIQUE: CT scan of the abdomen and pelvis performed using helical scanning technique with dynamic intravenous contrast injection. No oral contrast. Images reviewed with lung, soft tissue, and bone windows. Reconstructed coronal and sagittal MPR images reviewed. Delayed images for evaluation of the urinary system also acquired. All images stored on PACS. All CT scanners at this facility use dose modulation, iterative reconstruction, and/or weight based d osing when appropriate to reduce radiation dose to as low as reasonably achievable (ALARA). [facility]: Dose Right [facility]: CareDose [facility]: Dose Right [facility]: Teradose 4D [facility]: Cintric CONTRAST TYPE AND DOSE: Omnipaque 350 RENAL FUNCTION: None required. The patient is less than 50 years old. RADIATION DOSE: CT Rad equipment meets quality standard of care and radiation dose reduction techniq ues were employed. CTDIvol: 19.8 - 20.9 mGy. DLP: 2441 mGy-cm.. LIMITATIONS: None. FINDINGS: LOWER CHEST: Dependent atelectasis in the posterior aspect of the lower lungs. LIVER: Normal size. No masses. No dilated ducts. SPLEEN: Splenule, normal anatomic variant. PANCREAS: Slight haziness to the fat surrounding the pancreas and mild prominence of the pancreas, f indings may may be on an inflammatory basis. No abnormal peripancreatic fluid collections. No abnor mal fluid collections identified within the pancreas. No evidence of pancreatic duct dilatation. GALLBLADDER: No identified stones by CT criteria. No inflammatory changes to suggest cholecystitis. ADRENAL GLANDS: No significant masses or asymmetry. RIGHT KIDNEY AND URETER: No solid masses. No significant calcifications. No hydronephrosis or hyd roureter. LEFT KIDNEY AND URETER: No solid masses. No significant calcifications. No hydronephrosis or hydr oureter. AORTA AND VESSELS: No aneurysm. No dissection. Renal arteries, SMA, celiac without stenosis. RETROPERITONEUM: A few nonenlarged retroperitoneal lymph nodes. No retroperitoneal adenopathy, hemo rrhage or masses. BOWEL AND PERITONEAL CAVITY: Multiple borderline to mildly prominent appearing lymph nodes in the me sentery fat in the right lower quadrant of the abdomen, some of the largest measure up to 14-15 mm in AP diameter. Several nonenlarged small new lymph nodes in the root of the small bowel mesenteric. These findings may be on an inflammatory basis. APPENDIX: Prior appendectomy. PELVIS: No mass. No free fluid. Normal bladder. ABDOMINAL WALL: No masses. No hernias. BONES: Small bone island left supra-acetabular region. OTHER: No other significant finding. IMPRESSION: 1. Slight haziness of the fat surrounding the pancreas and mild prominence of the pancr eas, findings may be on an inflammatory basis. No evidence of abnormal cystic or fluid collections i n the peripancreatic soft tissues or within the pancreas. 2. As on the previous examination dated 01/29/2018, multiple borderline to mildly prominent lymph nod es in the mesenteric fat in the right lower quadrant of the abdomen. Some of the nodes have slightly increased in size. These findings may be on an inflammatory basis, with other etiologies not entire ly excluded. Correlation suggested. TECHNICAL DOCUMENTATION: JOB ID: [id number] Quality ID # [id number]: Final reports with documentation of one or more dose reduction techniques (e.g., Au tomated exposure control, adjustment of the mA and/or kV according to patient size, use of iterative reconstruction technique) 2010 [employer]- All Rights Reserved Reading location - IP/workstation name: [email or web address]
== END 2019-02-24 13:57 | disposition home or self-care (01) ==
LOC: ER 09:27
DX: K85.90 Acute pancreatitis without necrosis or infection, unspecified (principal); R19.7 Diarrhea, unspecified; R19.5 Other fecal abnormalities; J45.909 Unspecified asthma, uncomplicated
CPT/HCPCS: 36415; 74177; 80053; 83690; 85025; 99284